=== PATIENT | female | born 1950 | race Caucasian/White ===

== ENCOUNTER 2023-10-26 03:11 | Emergency (ER) | payer OTHER ==
[~2023-10-26] VITALS: Ht 170.2 cm; Wt 59.0 kg
[2023-10-26] MEDS ORDERED: ONDANSETRON HCL/PF 4 MG/2 ML VIAL IVP ONE (03:30)
[2023-10-26] MEDS ORDERED: IV NS 0.9% 1,000 ML BAG IV ONE (03:30)
[2023-10-26] MEDS ORDERED: ONDANSETRON HCL/PF 4 MG/2 ML VIAL ONE ×2 (03:33→04:21)
[2023-10-26] MEDS ORDERED: ONDANSETRON HCL/PF - ER 4 MG/2 ML VIAL IV ONE (04:30)
[2023-10-26] MEDS ORDERED: KETOROLAC TROMETHAMINE 15 MG/ML VIAL ONE (04:46)
[2023-10-26] MEDS ORDERED: KETOROLAC TROMETHAMINE 15 MG/ML VIAL IV ONE (05:00)
[2023-10-26] MEDS ORDERED: DROPERIDOL 5 MG/2 ML IV ONE (05:00)
[2023-10-26] MEDS ORDERED: SUMATRIPTAN SUCCINATE 25 MG TABLET ONE (05:21)
[2023-10-26] MEDS ORDERED: SUMATRIPTAN SUCCINATE 25 MG TABLET PO ONE (05:30)
[2023-10-26 06:20] VITALS: BP 128/75; TEMP 98; O2SAT 99
== END 2023-10-26 06:56 | disposition home or self-care (01) ==
LOC: ER 03:13
DX: R11.2 Nausea with vomiting, unspecified (principal); E86.0 Dehydration; M06.9 Rheumatoid arthritis, unspecified; G43.909 Migraine, unspecified, not intractable, without status migrainosus
CPT/HCPCS: 99284; 96374; 96361; 96375; 96376; J1790; J2405 ×2; J7030; J1885